=== PATIENT | male | born 1945 | race Asian ===

== ENCOUNTER 2017-02-23 20:12 | Emergency (ER) | payer OTHER ==
--- NOTE | 2017-02-23 21:12 | DIAGNOSTIC IMAGING REPORT ---
PROCEDURE: CT CERVICAL SPINE W/O CONTRAST INDICATION: Fall from roof. TECHNIQUE: Noncontrast axial images with sagittal and coronal reformations. COMPARISON: None. FINDINGS: There mild to moderate degenerative changes with mild multilevel disc space narrowing and facet disease. There are dystrophic calcifications of the ligamentum nuchae. Osseous structures and disc spaces are otherwise normal. No evidence of an acute process or fracture. Alignment is normal. IMPRESSION: 1. Mild to moderate degenerative changes. 2. Otherwise negative CT cervical spine. No evidence of an acute process or fracture. 3. Findings discussed with Dr. Broderick Jarrell. All CT scans at this facility use dose modulation, iterative reconstruction, and/or weight-based dosing when appropriate to reduce radiation dose to as low as reasonably achievable.
--- NOTE | 2017-02-23 21:13 | DIAGNOSTIC IMAGING REPORT ---
PROCEDURE: CT HEAD WITHOUT CONTRAST INDICATION: Trauma/injury. Fall from roof. TECHNIQUE: Noncontrast axial images with sagittal and coronal reformations. COMPARISON: None. FINDINGS: Mild to moderate extracranial soft tissue swelling and injury of the scalp vertex. No evidence of skull fracture. Intracranially, brain and ventricles are normal. No evidence of an acute process or hemorrhage. Enlarged cisterna magna represents a normal variant. Sinuses and mastoids are normal. IMPRESSION: 1. Mild to moderate extracranial soft tissue help injury (over the vertex). 2. Otherwise negative head CT. No evidence of intracranial injury. 3. Findings discussed with Dr. Broderick Jarrell at [address] scans at this facility use dose modulation, iterative reconstruction, and/or weight-based dosing when appropriate to reduce radiation dose to as low as reasonably achievable.
--- NOTE | 2017-02-23 21:48 | DIAGNOSTIC IMAGING REPORT ---
PROCEDURE: CT THORAX ABD PELVIS W/CONT INDICATION: TRAUMA/INJURY TECHNIQUE: of Isovue 300 injected intravenously and axial images were obtained of the entire thorax, abdomen, and pelvis with sagittal and coronal reformations. COMPARISON: None. FINDINGS: THORAX: Lungs are clear. Heart and mediastinum are normal. Mild to moderate degenerative changes of the thoracic spine. No evidence of fracture. ABDOMEN: Gallbladder, liver, spleen, pancreas, kidneys, and aorta are normal. Bowel pattern is within normal limits. Mild to moderate degenerative changes of the lumbar spine. PELVIS: Pelvic structures are normal. IMPRESSION: 1. Negative CT thorax. 2. Negative CT abdomen. 3. Negative CT pelvis. 4. No evidence of acute injury. 5. Findings discussed with Dr. Broderick Jarrell. All CT scans at this facility use dose modulation, iterative reconstruction, and/or weight-based dosing when appropriate to reduce radiation dose to as low as reasonably achievable.
--- NOTE | 2017-02-23 22:11 | ED NURSING NOTES ---
Clinical Report - Nurses [facility] [address] [place] [address] 02/23/2017 20:12 Patient: WILLIAM ZAMORA TRIAGE Triage time 20:Feb 23 2017. Acuity: LEVEL 2. Chief Complaint: INJURY TO HEAD and (pt last remembers being on the roof that is jr 12 feet tall, no recall or witness between time on roof and call to ems, pt presents with 2 lacs to top of head,). Alert. No acute distress. DANIELLE COMA SCORE: Danielle Coma Scale: 14- eyes open spontaneously (4); best verbal response- disoriented (4); best motor response- obeys commands (6). --20:25 Tracy Agarwal R.N. 20:15 02/23/17. BP: 151/87. HR: 82. RR: 17. O2 saturation: 97%. Temp: 98.3 F. Pain level now: 09/20. --20:25 Tracy Agarwal R.N. Weight: 83.9 kg stated. Height/Length: 66 inches Per Patient. BMI: 29.9. --20:19 Tracy Agarwal R.N. Medications MetFORMIN HCl Oral. --20:24 Tracy Agarwal R.N. Shark Cartilage Oral. --20:24 Tracy Agarwal R.N. Allergies None. --20:24 Tracy Agarwal R.N. History Arrived by EMS. Historian: patient. ( glucose 185). This occurred just prior to arrival and today (20 minutes ago). He sustained a laceration. Mechanism of injury: fell over 10 feet off a roof (unwitnessed, pt does not remember the fall). The patient had loss of consciousness. (unknown). Treatment CRANE HELPER: Applied bandage. (ccollar). See EMS report. PAST MEDICAL HX: Diabetes mellitus. Hypertension. Tetanus status: unknown. Immunizations: status is unknown. SOCIAL HX: Never smoker. No alcohol use or drug use. No infectious disease exposure. ABUSE ASSESSMENT: No report of abuse. SELF HARM ASSESSMENT: A self harm assessment was performed. The patient answered "no" to the question "Do you have thoughts of harming or killing yourself?". NUTRITIONAL RISK ASSESSMENT: The nutritional risk assessment revealed no deficiencies. FUNCTIONAL ASSESSMENT: Functional assessment: no impairments noted. LEARNING NEEDS ASSESSMENT: The learning needs assessment revealed no barriers. SKIN INTEGRITY ASSESSMENT: Skin integrity risk assessment completed. No skin integrity risk identified. --20:25 Tracy Agarwal R.N. PROBLEMS: Benign Prostatic Hypertrophy. Hypertension. Elevated Cholesterol. --20:25 Tracy Agarwal R.N. ADDITIONAL SURGERIES: no known surgeries. Interventions ID band on patient. To room. --20:25 Tracy Agarwal R.N. PHYSICAL ASSESSMENT To room via stretcher. GENERAL / NEURO / PSYCH: Alert. Oriented X 4. HEENT: Head: tenderness and laceration present. Vertex: laceration with controlled bleeding. Right and left ear within normal limits. Mouth within normal limits upon inspection. Voice within normal limits. No nasal injury noted. Mucous membranes are pink. RESPIRATORY: Respirations not labored. CVS: Capillary refill less than 2 seconds. BACK: Vertebral point tenderness over the lumbar spine. SKIN: Skin is warm and dry. --20:27 Tracy Agarwal R.N. NURSING PROGRESS NOTES C-collar applied. Patient gowned. Reassurance given. Patient identifiers checked. Call light placed in reach. Side rails up x 2. Bed placed in lowest position. Brakes of bed on. --20:27 Tracy Agarwal R.N. 20:23 02/23/2017 Site #1 started via IV in the right antecubital space with an 18g angiocath; one attempt. Blood drawn: rainbow set. Labeled in the presence of the patient and sent to the lab. Saline lock flushed with 10 mL saline. --20:28 Tracy Agarwal R.N. 20:28 02/23/2017 Site #2 started via IV in the left hand with an 20g angiocath; one attempt. Saline lock flushed with 10 mL saline. --20:28 Tracy Agarwal R.N. Cardiac rhythm: (SR). --20:28 Tracy Agarwal R.N. 20:41 02/23/2017 Started bag #1 1000 mL IV Fluids IV NS (Saline); at 1000 mL/hr via site #1. Allergies verified and confirmed 5 rights. IV patency established. IV site checked: no pain, redness, or swelling. IV flushed thoroughly pre- and post-medication administration. --20:41 Tracy Agarwal R.N. Patient transported to radiology and CT by stretcher. --20:46 Tracy Agarwal R.N. 21:19 02/23/2017 Morphine IVP 4 mg given. via site #1. Allergies verified, confirmed 5 rights and sedative warning given to the patient and patient's family. IV patency established. IV site checked: no pain, redness, or swelling. IV flushed thoroughly pre- and post-medication administration. IVP given by RN. --21:28 Tracy Agarwal R.N. 22:01 02/23/17. Wound cleansed with water and Hibiclens (By Lori GIORDANO). --22:47 Tracy Agarwal R.N. 22:04 02/23/17. WOUND REPAIR: Wound repair performed by ED physician. Assisted by one nurse. The wound is located on the scalp. The wound is linear. Preparation: with 1% lidocaine. Wound cleansed per physician with sterile saline and irrigated per physician using a syringe. Procedure: wound repaired with pb. Post-procedure: he was stable, no complications, bleeding controlled, neuro-vascular status intact distal to wound, dressing applied and wound care instructions given. --22:35 Tracy Agarwal R.N. 22:05 02/23/2017 TDAP IM 0.5 mL given. (Lot#: [id number], expiration date: 01/14/2019, [employer]: [employer]). Given in the right deltoid. Allergies verified and confirmed 5 rights. Vaccine information statement provided to the patient. --22:15 Tracy Agarwal R.N. <<ROYCEKEN ENTRY-- 22:31 02/23/17. WOUND REPAIR: Wound repair performed by TONY. The wound is located on the left foot and fourth left toe. The wound is linear. Preparation. Wound cleansed per nurse. Procedure: wound repaired with Dermabond and steri-strips. Post-procedure: he was stable, no complications, bleeding controlled, neuro-vascular status intact distal to wound and dressing applied. --22:48 Tracy Agarwal R.N. --END STRIKE>> Charted On Wrong Patient --22:50 Tracy Agarwal R.N. 22:49. ( pt dc home with family via w[place] to car. pt able to transfer self independently, lac to head pb intact, 11 total, pts family instructed on if head wound were to begin to bleed to hold pressure, at this time c/d/i, s/sx of infection gone over with family, pt enc to pe[facility] picker rx this evening, pt a/o x 4 on dispo, santosh, does c/o cont pain to right flank "but it's better since the medicine"). --23:31 Tracy Agarwal R.N. 21:54 02/24/2017 IV Fluids IV NS Discontinued: completed upon discharge. Total amount infused: 1000 mL. IV patency established. IV site checked: no pain, redness, or swelling. IV flushed thoroughly. --00:26 Tracy Agarwal R.N. DISPOSITION / DISCHARGE 22:48 02/23/17. BP: 109/76. HR: 71. RR: 15. O2 saturation: 100%. Temp: deferred. Pain level now: 12/18. --22:49 Tracy Agarwal R.N. No learning barriers present. Discharge instructions provided and reviewed with the patient. Reviewed medication(s) side effects, precautions, dosing and course information. Prescription(s) given to the patient. Patient verbalized understanding. Written instructions provided in Slovak. The patient was discharged by the physician temporary administrative assistant. He was discharged home and accompanied by spouse. He left the Emergency Department ambulatory and via private vehicle. Spouse driving. --22:49 Tracy Agarwal R.N. 22:43 02/23/2017 Site #1 removed upon discharge. Bandaid applied. --22:53 Tracy Agarwal R.N. 22:43 02/23/2017 Site #2 removed upon discharge. Bandaid applied. --22:53 Tracy Agarwal R.N. Locked/Released at 02/24/2017 0:26 by Tracy Agarwal R.N.
--- NOTE | 2017-02-23 22:11 | ED CLINICAL REPORT ---
Clinical Report - Physicians/Mid Levels [facility] [address] [place] [address] 02/23/2017 20:12 Patient: WILLIAM ZAMORA Time Seen: 20:36; initial patient contact. Arrived- By ambulance. Historian- patient and EMS personnel. HISTORY OF PRESENT ILLNESS Location of injuries- head, chest and upper back. Chief Complaint: FALL. The injury occurred just prior to arrival. Fell over 10 feet and landed on the ground. Occurred at home. The patient complains of moderate pain. The patient sustained a blow to the head, complains of neck pain and was dazed. No loss of consciousness. REVIEW OF SYSTEMS The patient has had chest pain. No difficulty breathing, nausea, abdominal pain, laceration or vomiting. All systems otherwise negative, except as recorded above. PAST HISTORY Benign Prostatic Hypertrophy. Hypertension. Elevated Cholesterol. DM. Surgeries: No history of previous surgery. Additional Surgeries: no known surgeries. Medications: Shark Cartilage Oral. MetFORMIN HCl Oral. Allergies: None. SOCIAL HISTORY Never smoker. No alcohol use or drug use. ADDITIONAL NOTES The nursing notes have been reviewed. PHYSICAL EXAM Vital Signs: 02/23/2017 20:15 BP: 151/87. HR: 82. RR: 17. O2 saturation: 97%. Temp: 98.3 F. Pain level now: 2/10. Have been reviewed. Hypertensive. Heart rate normal. Respiratory rate normal. Temperature normal. Oxygen saturation normal. Appearance: C-collar in place. Alert. Oriented X3. No acute distress. Head: No Aguilar's sign or raccoon eyes. Vertex: mild tenderness and swelling and deep laceration greater than 5.0 cm of the posterior aspect of the vertex. ENT: No dental injury. Pharynx normal. Neck: No pain with movement of head/neck. No vertebral tenderness. Mild soft tissue tenderness in the right upper, mid and lower neck area and left upper, mid and lower neck area. CVS: Heart sounds normal. Rate normal. Rhythm normal. Respiratory: No respiratory distress. Chest wall injury: moderate tenderness located in the right, posterior and lateral chest. Splinting present. No swelling. No laceration. No abrasion. No ecchymosis. No deformity. No paradoxical movement. Breath sounds normal. Abdomen: No visible injury. Soft and nontender. Bowel sounds normal. No organomegaly. No mass. Back: No tenderness. ROM normal. Skin: Single large-sized, deep, linear greater than 5.0 cm laceration to scalp. Extremities: Normal inspection. Pelvis stable. Extremities atraumatic. Neuro: Oriented X 3. No motor deficit. No sensory deficit. LABS, X-RAYS, AND EKG CT C-Spine: (1. Mild to moderate degenerative changes. 2. Otherwise negative CT cervical spine. No evidence of an acute process or fracture.). C-Spine CT performed without contrast. Prior studies were not available for comparison. The study was interpreted by the radiologist and discussed with the radiologist. CT Head: (1. Mild to moderate extracranial soft tissue help injury (over the vertex). 2. Otherwise negative head CT. No evidence of intracranial injury.). Head CT performed without contrast. The study was independently viewed by me, interpreted by the radiologist and discussed with the radiologist. Prior studies were not available for comparison. CT Abdomen: 1. Negative CT thorax. 2. Negative CT abdomen. 3. Negative CT pelvis. 4. No evidence of acute injury. Abdominal CT performed with IV contrast. Prior studies were not available for comparison. The study was interpreted by the radiologist and discussed with the radiologist. Laboratory Tests: CBC w Diff: (PABLO: 02/23/2017 20:20) ( MsgRcvd 02/23/2017 20:48) Final results Test Result Flag Units (Reference) WHITE BLOOD COUNT 10.5 K/uL (4.5-11.5) RED BLOOD COUNT 4.28 L M/uL (4.50-5.90) HEMOGLOBIN 13.3 L gm/dL (13.5-17.5) HEMATOCRIT 38.3 L % (41.0-53.0) MEAN CELL VOLUME 90 fL (80-100) MEAN CORPUSCULAR HGB 31 pg (26-34) MEAN CORPUSCULAR HGB CONC 35 g/dL (31-37) RED CELL DISTRIBUTION WIDTH 12.2 % (11.6-14.8) PLATELET COUNT 249 K/uL (150-400) NEUTROPHIL % 53.8 % (50-75) LYMPH % 32.9 % (25-40) MONO % 9.7 % (3-14) EOSINOPHIL % 3.1 % (0-4) BASOPHIL % 0.5 % (0-2) CMP: (PABLO: 02/23/2017 20:20) ( MsgRcvd 02/23/2017 21:04) Final results Test Result Flag Units (Reference) GLUCOSE 188 H mg/dL (70-110) BUN 13 mg/dL (7-18) CREATININE 1.0 mg/dL (0.6-1.3) Estimated GFR >60 mL/min Estimated GFR- >60 mL/min Note: Persistent reduction over 3 months in eGFR<60 mL/min/1.73 m2 defines CKD. Patients with eGFR values>=60 mL/min/1.73 m2 may also have CKD if evidence ofpersistent proteinuria. Additional information may be foundat [email or web address]. SODIUM 134 L mmol/L (136-145) POTASSIUM 4.2 mmol/L (3.5-5.1) CHLORIDE 100 mmol/L (98-107) CARBON DIOXIDE 27 mmol/L (21-32) CALCIUM 8.2 L mg/dL (8.5-10.1) TOTAL PROTEIN 7.5 g/dL (6.4-8.2) ALBUMIN 3.8 g/dL (3.3-5.0) BILIRUBIN, TOTAL 0.4 mg/dL (0.0-1.0) ALKALINE PHOSPHATASE 48 U/L (46-116) AST (SGOT) 26 U/L (15-37) ALT (SGPT) 32 U/L (12-78) . PROGRESS AND PROCEDURES Laceration Repair: Time: 22:09. Location: scalp. Per protocol, time-out completed immediately before the procedure. Length: greater than 8.0cm. Complexity: simple (stapled). Wound depth/shape- subcutaneous. Distal neuro/vascular/tendon status normal. Anesthesia provided using 1% lidocaine with epi. Prepped with chlorhexidine. Wound explored, irrigated and examined to the base in bloodless field extensively with normal saline. Closure of skin: interrupted (11 pb). Post-procedure: he is stable and there are no complications. Bleeding is controlled and neuro-vascular status is intact distal to the wound. Tetanus immunization given. Estimated blood loss: 2 mL. Disposition: Discharged home in good and improved condition. Condition: good. CLINICAL IMPRESSION Single deep laceration to the scalp.Treatment of laceration not delayed. No infection or foreign body present. Single contusion to the right posterior chest. Fall from building and on same level by slipping. INSTRUCTIONS Protect wound and keep wound area clean. You may wash wounds briefly, then dry. Apply bacitracin twice daily. Sutures/pb should be removed in five days. Warnings: TETANUS: You were given a tetanus shot during your visit. Make a note for future reference. Your Current Medications: CONTINUE TAKING THE FOLLOWING MEDICATIONS: MetFORMIN HCl Oral. Shark Cartilage Oral. Prescription Medications: Hydrocodone/APAP 5mg / 325mg: take 1 orally every 6 hours as needed for pain. Dispense fifteen (15). No refill. Follow-up: Follow up with your doctor in five days for staple removal. Call for an appointment. Screening today revealed the patient's blood pressure to be in the hypertensive range. The patient should follow up with a primary care provider for blood pressure management. (Electronically signed by Broderick Jarrell Dr. 02/23/2017 23:08)
--- NOTE | 2017-02-23 22:11 | ED ORDER SUMMARY ---
..... Patient: WILLIAM ZAMORA OrderSheet [facility] VisitID: [id number] [place] [address] 71y, M Registration Date/Time: 02/23/2017 ORDER SHEET Weight: 83.9 kg (stated) Allergies: None GENERAL ORDERS: CT Head wo Cont Urgent (20:37 02/23/2017 Gerardo Watkins) (Ack 20:44 AMcQuoid ER Tech1) (20:52 RFay) CT Cervical Spine wo Cont Urgent (20:37 02/23/2017 Gerardo Watkins) (Ack 20:44 AMcQuoid ER Tech1) (20:52 RFay) CBC w Diff Urgent (20:39 02/23/2017 Gerardo Watkins) (20:44 AMcQuoid ER Tech1) CMP Urgent (20:39 02/23/2017 Gerardo Watkins) (20:44 AMcQuoid ER Tech1) UA-Culture if indicated Urgent (20:39 02/23/2017 Gerardo Watkins) (Ack 20:45 AMcQuoid ER Tech1) (0:25 KPage-Kuchan R.N.) CT Thorax/Abd/Pelvis w Cont (Yes) (23/08) Urgent (21:19 02/23/2017 Gerardo Watkins) (Ack 21:22 AMcQuoid ER Tech1) (21:37 RFay) MEDICATION ORDERS: Tdap IM 0.5 mL (NOW, per protocol) (21:48 02/23/2017 Gerardo Watkins) (Ack 21:56 KPage-Kuchan R.N.) (22:15 KPage-Kuchan R.N.) Lidocaine-Epinephrine Injection 2 % (soln) (NOW) (21:50 02/23/2017 Gerardo Watkins) (Cancelled: Physician Order21:51 Gerardo Watkins) IV FLUIDS: IV NS : initial bolus none -, then 1000 mL/hr for X1 (NOW) (20:36 02/23/2017 Gerardo Watkins) (20:41 KPage-Kuadaln R.N.) Morphine IV 4 mg (HIGH ALERT MEDICATION, NOW) (21:14 02/23/2017 Gerardo Watkins) (21:28 Dilia Allen) ORDER SHEET NOTES: [Electronically signed by Broderick Jarrell Dr. (23:08 02/23/2017)] [Electronically signed by Tracy Agarwal R.N. (00:26 02/24/2017)] [Electronically locked/signed by Tracy Agarwal R.N. (00:26 02/24/2017)]
--- NOTE | 2017-02-23 22:11 | ED NURSING NOTES ---
Clinical Report - Nurses [facility] [address] [place] [address] 02/23/2017 20:12 Patient: WILLIAM ZAMORA TRIAGE Triage time 20:Feb 23 2017. Acuity: LEVEL 2. Chief Complaint: INJURY TO HEAD and (pt last remembers being on the roof that is jr 12 feet tall, no recall or witness between time on roof and call to ems, pt presents with 2 lacs to top of head,). Alert. No acute distress. DANIELLE COMA SCORE: Danielle Coma Scale: 14- eyes open spontaneously (4); best verbal response- disoriented (4); best motor response- obeys commands (6). --20:25 Tracy Agarwal R.N. 20:15 02/23/17. BP: 151/87. HR: 82. RR: 17. O2 saturation: 97%. Temp: 98.3 F. Pain level now: 09/20. --20:25 Tracy Agarwal R.N. Weight: 83.9 kg stated. Height/Length: 66 inches Per Patient. BMI: 29.9. --20:19 Tracy Agarwal R.N. Medications MetFORMIN HCl Oral. --20:24 Tracy Agarwal R.N. Shark Cartilage Oral. --20:24 Tracy Agarwal R.N. Allergies None. --20:24 Tracy Agarwal R.N. History Arrived by EMS. Historian: patient. ( glucose 185). This occurred just prior to arrival and today (20 minutes ago). He sustained a laceration. Mechanism of injury: fell over 10 feet off a roof (unwitnessed, pt does not remember the fall). The patient had loss of consciousness. (unknown). Treatment ESTIMATING ENGINEER: Applied bandage. (ccollar). See EMS report. PAST MEDICAL HX: Diabetes mellitus. Hypertension. Tetanus status: unknown. Immunizations: status is unknown. SOCIAL HX: Never smoker. No alcohol use or drug use. No infectious disease exposure. ABUSE ASSESSMENT: No report of abuse. SELF HARM ASSESSMENT: A self harm assessment was performed. The patient answered "no" to the question "Do you have thoughts of harming or killing yourself?". NUTRITIONAL RISK ASSESSMENT: The nutritional risk assessment revealed no deficiencies. FUNCTIONAL ASSESSMENT: Functional assessment: no impairments noted. LEARNING NEEDS ASSESSMENT: The learning needs assessment revealed no barriers. SKIN INTEGRITY ASSESSMENT: Skin integrity risk assessment completed. No skin integrity risk identified. --20:25 Tracy Agarwal R.N. PROBLEMS: Benign Prostatic Hypertrophy. Hypertension. Elevated Cholesterol. --20:25 Tracy Agarwal R.N. ADDITIONAL SURGERIES: no known surgeries. Interventions ID band on patient. To room. --20:25 Tracy Agarwal R.N. PHYSICAL ASSESSMENT To room via stretcher. GENERAL / NEURO / PSYCH: Alert. Oriented X 4. HEENT: Head: tenderness and laceration present. Vertex: laceration with controlled bleeding. Right and left ear within normal limits. Mouth within normal limits upon inspection. Voice within normal limits. No nasal injury noted. Mucous membranes are pink. RESPIRATORY: Respirations not labored. CVS: Capillary refill less than 2 seconds. BACK: Vertebral point tenderness over the lumbar spine. SKIN: Skin is warm and dry. --20:27 Tracy Agarwal R.N. NURSING PROGRESS NOTES C-collar applied. Patient gowned. Reassurance given. Patient identifiers checked. Call light placed in reach. Side rails up x 2. Bed placed in lowest position. Brakes of bed on. --20:27 Tracy Agarwal R.N. 20:23 02/23/2017 Site #1 started via IV in the right antecubital space with an 18g angiocath; one attempt. Blood drawn: rainbow set. Labeled in the presence of the patient and sent to the lab. Saline lock flushed with 10 mL saline. --20:28 Tracy Agarwal R.N. 20:28 02/23/2017 Site #2 started via IV in the left hand with an 20g angiocath; one attempt. Saline lock flushed with 10 mL saline. --20:28 Tracy Agarwal R.N. Cardiac rhythm: (SR). --20:28 Tracy Agarwal R.N. 20:41 02/23/2017 Started bag #1 1000 mL IV Fluids IV NS (Saline); at 1000 mL/hr via site #1. Allergies verified and confirmed 5 rights. IV patency established. IV site checked: no pain, redness, or swelling. IV flushed thoroughly pre- and post-medication administration. --20:41 Tracy Agarwal R.N. Patient transported to radiology and CT by stretcher. --20:46 Tracy Agarwal R.N. 21:19 02/23/2017 Morphine IVP 4 mg given. via site #1. Allergies verified, confirmed 5 rights and sedative warning given to the patient and patient's family. IV patency established. IV site checked: no pain, redness, or swelling. IV flushed thoroughly pre- and post-medication administration. IVP given by RN. --21:28 Tracy Agarwal R.N. 22:01 02/23/17. Wound cleansed with water and Hibiclens (By Lori GIORDANO). --22:47 Tracy Agarwal R.N. 22:04 02/23/17. WOUND REPAIR: Wound repair performed by ED physician. Assisted by one nurse. The wound is located on the scalp. The wound is linear. Preparation: with 1% lidocaine. Wound cleansed per physician with sterile saline and irrigated per physician using a syringe. Procedure: wound repaired with pb. Post-procedure: he was stable, no complications, bleeding controlled, neuro-vascular status intact distal to wound, dressing applied and wound care instructions given. --22:35 Tracy Agarwal R.N. 22:05 02/23/2017 TDAP IM 0.5 mL given. (Lot#: [id number], expiration date: 01/14/2019, Yard Coordinator: sanofi pasteur). Given in the right deltoid. Allergies verified and confirmed 5 rights. Vaccine information statement provided to the patient. --22:15 Tracy Agarwal R.N. <<ROYCEKEN ENTRY-- 22:31 02/23/17. WOUND REPAIR: Wound repair performed by TONY. The wound is located on the left foot and fourth left toe. The wound is linear. Preparation. Wound cleansed per nurse. Procedure: wound repaired with Dermabond and steri-strips. Post-procedure: he was stable, no complications, bleeding controlled, neuro-vascular status intact distal to wound and dressing applied. --22:48 Tracy Agarwal R.N. --END STRIKE>> Charted On Wrong Patient --22:50 Tracy Agarwal R.N. 22:49. ( pt dc home with family via w[place] to car. pt able to transfer self independently, lac to head pb intact, 11 total, pts family instructed on if head wound were to begin to bleed to hold pressure, at this time c/d/i, s/sx of infection gone over with family, pt enc to merchandise pickup/receiving associate rx this evening, pt a/o x 4 on dispo, santosh, does c/o cont pain to right flank "but it's better since the medicine"). --23:31 Tracy Agarwal R.N. 21:54 02/24/2017 IV Fluids IV NS Discontinued: completed upon discharge. Total amount infused: 1000 mL. IV patency established. IV site checked: no pain, redness, or swelling. IV flushed thoroughly. --00:26 Tracy Agarwal R.N. DISPOSITION / DISCHARGE 22:48 02/23/17. BP: 109/76. HR: 71. RR: 15. O2 saturation: 100%. Temp: deferred. Pain level now: 12/18. --22:49 Tracy Agarwal R.N. No learning barriers present. Discharge instructions provided and reviewed with the patient. Reviewed medication(s) side effects, precautions, dosing and course information. Prescription(s) given to the patient. Patient verbalized understanding. Written instructions provided in Croatian. The patient was discharged by the physician research assistant member. He was discharged home and accompanied by spouse. He left the Emergency Department ambulatory and via private vehicle. Spouse driving. --22:49 Tracy Agarwal R.N. 22:43 02/23/2017 Site #1 removed upon discharge. Bandaid applied. --22:53 Tracy Agarwal R.N. 22:43 02/23/2017 Site #2 removed upon discharge. Bandaid applied. --22:53 Tracy Agarwal R.N. Locked/Released at 02/24/2017 0:26 by Tracy Agarwal R.N.
--- NOTE | 2017-02-23 22:11 | ED ORDER SUMMARY ---
..... Patient: WILLIAM ZAMORA [facility] VisitID: [id number] [place] [address] 71y, M Registration Date/Time: 02/23/2017 ORDER SHEET Weight: 83.9 kg (stated) Allergies: None GENERAL ORDERS: CT Head wo Cont Urgent (20:37 02/23/2017 Gerardo Watkins) (Ack 20:44 AMcQuoid ER Tech1) (20:52 RFay) CT Cervical Spine wo Cont Urgent (20:37 02/23/2017 Gerardo Watkins) (Ack 20:44 AMcQuoid ER Tech1) (20:52 RFay) CBC w Diff Urgent (20:39 02/23/2017 Gerardo Watkins) (20:44 AMcQuoid ER Tech1) CMP Urgent (20:39 02/23/2017 Gerardo Watkins) (20:44 AMcQuoid ER Tech1) UA-Culture if indicated Urgent (20:39 02/23/2017 Gerardo Watkins) (Ack 20:45 AMcQuoid ER Tech1) (0:25 KPage-Kuchan R.N.) CT Thorax/Abd/Pelvis w Cont (Yes) (23/08) Urgent (21:19 02/23/2017 Gerardo Watkins) (Ack 21:22 AMcQuoid ER Tech1) (21:37 RFay) MEDICATION ORDERS: Tdap IM 0.5 mL (NOW, per protocol) (21:48 02/23/2017 Gerardo Watkins) (Ack 21:56 KPage-Kuchan R.N.) (22:15 KPage-Kuchan R.N.) Lidocaine-Epinephrine Injection 2 % (soln) (NOW) (21:50 02/23/2017 Gerardo Watkins) (Cancelled: Physician Order21:51 Gerardo Watkins) IV FLUIDS: IV NS : initial bolus none -, then 1000 mL/hr for X1 (NOW) (20:36 02/23/2017 Gerardo Watkins) (20:41 KPage-Kuadaln R.N.) Morphine IV 4 mg (HIGH ALERT MEDICATION, NOW) (21:14 02/23/2017 Gerardo Watkins) (21:28 Dilia Allen) ORDER SHEET NOTES: [Electronically signed by Broderick Jarrell Dr. (23:08 02/23/2017)] [Electronically signed by Tracy Agarwal R.N. (00:26 02/24/2017)] [Electronically locked/signed by Tracy Agarwal R.N. (00:26 02/24/2017)]
--- NOTE | 2017-02-24 00:27 | ED MAR SUMMARY ---
..... Medication Administration Record [facility] [address] [place] [address] Patient: WILLIAM ZAMORA Visit ID: [id number] 71y, M Weight: 83.9 kg Height/Length: 66 in BMI: 29.9 ALLERGIES: None Start 20:41 02/23/2017 Tracy Agarwal R.N., Stop 21:54 02/24/2017 Tracy Agarwal R.N. Medication Administered: IV NS (SALINE), Dose: IV Fluids, Rate: 1000 mL/hr, Dispensed: 1000 mL bag, Site: #1 right AC. Medication Ordered: IV NS : initial bolus none -, then 1000 mL/hr for X1 (NOW). Given 21:19 02/23/2017 Tracy Agarwal R.N. Medication Administered: MORPHINE [IVP], Dose: 4 mg IVP, Site: #1 right AC. Medication Ordered: Morphine IV 4 mg (HIGH ALERT MEDICATION, NOW). Given 22:05 02/23/2017 Tracy Agarwal R.N. Medication Administered: TDAP [IM], Dose: 0.5 mL IM. Medication Ordered: Tdap IM 0.5 mL (NOW, per protocol).
--- NOTE | 2017-02-24 00:27 | ED MED RECONCILIATION SUMMARY ---
Patient: WILLIAM ZAMORA Medication Reconciliation Report [facility] VisitID: [id number] [address] [place] [address] 71y, M Registration Date/Time: 02/23/2017 Weight: 83.9 kg Height/Length: 66 in. BMI: 29.9 ALLERGIES: None The patient's Home Medications are listed below: CONTINUE TAKING THE FOLLOWING MEDICATIONS: MetFORMIN HCl Oral Shark Cartilage Oral The source(s) of the original Home Medication information: Not obtained. The following Medications were given to the patient in the Emergency Department: IV NS IV Fluids bolus 0, then 1000 mL/hr, administered: 02/23/2017 8:41:00 PM Morphine [IVP] IVP 4 mg, administered: 02/23/2017 9:19:00 PM TDAP [IM] IM 0.5 mL, administered: 02/23/2017 10:05:00 PM The following Medications were prescribed to the patient: Hydrocodone/APAP 5mg / 325mg: take 1 orally every 6 hours as needed for pain. Dispense fifteen (15). No refill. -- Broderick Jarrell Dr.
--- NOTE | 2017-02-24 00:27 | ED MAR SUMMARY ---
..... Medication Administration Record [facility] [address] [place] [address] Patient: WILLIAM ZAMORA Visit ID: [id number] 71y, M Weight: 83.9 kg Height/Length: 66 in BMI: 29.9 ALLERGIES: None Start 20:41 02/23/2017 Tracy Agarwal R.N., Stop 21:54 02/24/2017 Tracy Agarwal R.N. Medication Administered: IV NS (SALINE), Dose: IV Fluids, Rate: 1000 mL/hr, Dispensed: 1000 mL bag, Site: #1 right AC. Medication Ordered: IV NS : initial bolus none -, then 1000 mL/hr for X1 (NOW). Given 21:19 02/23/2017 Tracy Agarwal R.N. Medication Administered: MORPHINE [IVP], Dose: 4 mg IVP, Site: #1 right AC. Medication Ordered: Morphine IV 4 mg (HIGH ALERT MEDICATION, NOW). Given 22:05 02/23/2017 Tracy Agarwal R.N. Medication Administered: TDAP [IM], Dose: 0.5 mL IM. Medication Ordered: Tdap IM 0.5 mL (NOW, per protocol).
--- NOTE | 2017-02-24 00:27 | ED MED RECONCILIATION SUMMARY ---
Patient: WILLIAM ZAMORA Medication Reconciliation Report [facility] VisitID: [id number] [address] [place] [address] 71y, M Registration Date/Time: 02/23/2017 Weight: 83.9 kg Height/Length: 66 in. BMI: 29.9 ALLERGIES: None The patient's Home Medications are listed below: CONTINUE TAKING THE FOLLOWING MEDICATIONS: MetFORMIN HCl Oral Shark Cartilage Oral The source(s) of the original Home Medication information: Not obtained. The following Medications were given to the patient in the Emergency Department: IV NS IV Fluids bolus 0, then 1000 mL/hr, administered: 02/23/2017 8:41:00 PM Morphine [IVP] IVP 4 mg, administered: 02/23/2017 9:19:00 PM TDAP [IM] IM 0.5 mL, administered: 02/23/2017 10:05:00 PM The following Medications were prescribed to the patient: Hydrocodone/APAP 5mg / 325mg: take 1 orally every 6 hours as needed for pain. Dispense fifteen (15). No refill. -- Broderick Jarrell Dr.
--- NOTE | 2017-02-24 00:27 | ED DISCHARGE INSTRUCTIONS ---
Patient: WILLIAM ZAMORA General Instructions [facility] VisitID: [id number] [place] [address] 71y, M Registration Date/Time: 02/23/2017 Single deep laceration to the scalp.Treatment of laceration not delayed. No infection or foreign body present. Single contusion to the right posterior chest. Fall from building and on same level by slipping. INSTRUCTIONS Protect wound and keep wound area clean. You may wash wounds briefly, then dry. Apply bacitracin twice daily. Sutures/pb should be removed in five days. Warnings: TETANUS: You were given a tetanus shot during your visit. Make a note for future reference. Your Current Medications: CONTINUE TAKING THE FOLLOWING MEDICATIONS: MetFORMIN HCl Oral. Shark Cartilage Oral. Prescription Medications: Hydrocodone/APAP 5mg / 325mg: take 1 orally every 6 hours as needed for pain. Dispense fifteen (15). No refill. Follow-up: Follow up with your doctor in five days for staple removal. Call for an appointment. Screening today revealed the patient's blood pressure to be in the hypertensive range. The patient should follow up with a primary care provider for blood pressure management. ADDITIONAL INFORMATION Mechanical Fall You have had a fall today. It appears that the cause is mechanical. That means that you slipped, tripped or lost your balance. If your fall had been due to fainting or a seizure, further tests would be required. Home Care: Rest today and resume your normal activities when you are feeling back to normal. If you were injured during the fall, follow the advice from your doctor regarding care of your injury. You may use acetaminophen (Tylenol) or ibuprofen (Motrin, Advil) to control pain, unless another pain medicine was prescribed. [NOTE: If you have chronic liver or kidney disease or ever had a stomach ulcer or GI bleeding, talk with your doctor before using these medicines.] Fall Prevention: Was there anything that caused your fall that can be fixed, removed, or replaced? Make your home safe by keeping walkways clear of objects you may trip over. Use non-slip pads under rugs. Do not walk in poorly lit areas. Do not stand on chairs or wobbly ladders. Use caution when reaching overhead or looking upward. This position can cause a loss of balance. Be sure your shoes fit properly, have non-slip bottoms and are in good condition. Be cautious when going up and down curbs, and walking on uneven sidewalks. If your balance is poor, consider using a cane or walker. Stay as active as you can. Balance, flexibility, strength, and endurance all come from exercise. They all play a role in preventing falls. Follow Up with your doctor or as advised by our staff. Get Prompt Medical Attention if any of the following occur: Repeated mechanical falls, or unexplained falls Dizziness, fainting or seizure Severe headache Chest pain or shortness of breath Palpitations (very rapid or very slow or irregular heartbeat) Blood in vomit, stools (black or red color) Weakness of an arm or leg or one side of the face Difficulty with speech or vision Laceration (All Closures) Alaceration is a cut through the skin. This will usually require stitches (sutures) or pb if it is deep. Minor cuts may be treated with a surgical tape closure orskin glue. Home care The following guidelines will help you care for your laceration at home: Extremity, face, or trunk wounds Keep the wound clean and dry. If a bandage was applied and it becomes wet or dirty, replace it. Otherwise, leave it in place for the first 24 hours. If stitches or pb were used, clean the wound daily. After removing the bandage, wash the area with soap and water. Use a wet cotton swab to loosen and remove any blood or crust that forms. The doctor may prescribe an antibiotic cream or ointment to prevent infection. Do not stop taking this medication until you have finished the prescribed course or the doctor tells you to stop. The doctor may also prescribe medications for pain. Follow the doctors instructions for taking these medications. You may remove the bandage to shower as usual after the first 24 hours, but do not soak the area in water (no swimming) until the stitches or pb are removed. If surgical tape was used, keep the area clean and dry. If it becomes wet, blot it dry with a towel. If skin glue was used, do not scratch, rub, or pick at the adhesive film. Do not place tape directly over the film. Do not apply liquid, ointment, or creams to the wound while the film is in place. Do not clean the wound with peroxide and do not apply ointments. Avoid activities that cause heavy sweating until the film has fallen off. Protect the wound from prolonged exposure to sunlight or tanning lamps. You may shower as usual but do not soak the wound in water (no baths or swimming). The film will fall off by itself in 510 days. Scalp wounds During the first two days, you may carefully rinse your hair in the shower to remove blood, glass or dirt particles. After two days, you may shower and shampoo your hair normally. Do not soak your scalp in the tub or go swimming until the stitches or pb have been removed. Talk with your doctor before applying any antibiotic ointment to the wound. Mouth wounds Eat soft foods to reduce pain. If the cut is inside of your mouth, clean by rinsing after each meal and at bedtime with a mixture of equal parts water and hydrogen peroxide (do not swallow!). Or, you can use a cotton swab to directly apply hydrogen peroxide onto the cut. Mouth wounds can be painful when eating. You may use an [id number] local numbing solution for pain relief. If this is not available, you may use any numbing solution for teething babies. You may apply this directly to the sores with a cotton-tip swab or with your finger. Follow-up care Follow up with your health care provider. Most skin wounds heal within ten days. Mouth and facial wounds heal within five days. However, even with proper treatment, a wound infection may sometimes occur. Therefore, you should check the wound daily for signs of infection listed below. Stitches should be removed from the face within five days; stitches and pb should be removed from other parts of the body within 714 days. If dissolving stitches were used in the mouth, these will fall out or dissolve without the need for removal. If tape closures were used, remove them yourself if they have not fallen off after 7 days. Ifskin glue was used, the film will fall off by itself in 510 days. When to seek medical care Get prompt medical attention if any of these occur: Bleeding not controlled by direct pressure Signs of infection, including increasing pain in the wound, increasing wound redness or swelling, or pus coming from the wound Fever of 100.4F (38C) or higher, or as directed by your health care provider Stitches or pb come apart or fall out or surgical tape falls off before 7 days Wound edges re-open Contusion,Soft Tissue You have a CONTUSION, which is a bruise with swelling and some bleeding under the skin. There are no broken bones. This injury takes a few days to a few weeks to heal. Home Care: 1) Keep the injured part elevated to reduce pain and swelling. This is especially important during the first 48 hours. 2) Make an ice pack (ice cubes in a plastic bag, wrapped in a towel) and apply for 20 minutes every 1-2 hours the first day. Continue this 3-4 times a day until the pain and swelling goes away. 3) You may use acetaminophen (Tylenol) or ibuprofen (Motrin, Advil) to control pain, unless another pain medicine was prescribed. [ NOTE : If you have chronic liver or kidney disease or ever had a stomach ulcer or GI bleeding, talk with your doctor before using these medicines.] Follow Up with your doctor or this facility if you are not improving within the next THREE days. [NOTE: If X-rays were taken, they will be reviewed by a radiologist. You will be notified of any new findings that may affect your care.] Get Prompt Medical Attention if any of the following occur: -- Pain or swelling increases -- Injured arm or leg becomes cold, blue, numb or tingly -- Redness, warmth or drainage from the skin Bandage Change If the bandage becomes wet or dirty, replace it. Otherwise, leave it in place for the first 24 hours. Then once a day: After removing the bandage, wash the area with soap and water. Use a wet cotton swab to loosen and remove any blood or crust that forms on the wound. After cleaning, apply a thin layer of antibiotic ointment or cream. Reapply the bandage. You may shower as usual after the first 24 hours. If the bandage is on an arm or leg, cover it with a plastic bag rubber banded at both ends before showering. No tub baths or swimming until the bandage is removed and the wound healed (at least 7 days). Diphtheria Toxoid Adsorbed, Pertussis Vaccine, Acellular (Adsorbed), Tetanus Toxoid, Adsorbed Suspension for injection What is this medicine? DIPHTHERIA and TETANUS TOXOIDS; PERTUSSIS VACCINE (dif THEER ee uh and TET n us TOK soids; per TUS iss vak SEEN) is used to prevent diphtheria, tetanus, and pertussis infections. How should I use this medicine? This vaccine is for injection into a muscle. It is given by a health care services manager. A copy of Vaccine Information Statements will be given before each vaccination. Read this sheet carefully each time. The sheet may change frequently. Talk to your nuclear reactor technician regarding the use of this vaccine in children. While the DTP vaccine may be given to children ages 6 weeks to 7 years and the Tdap vaccine may be given to children at least 10 years old, precautions do apply. What side effects may I notice from receiving this medicine? Side effects that you should report to your doctor or health care services manager as soon as possible: allergic reactions like skin rash, itching or hives, swelling of the face, lips, or tongue breathing problems fever of 103 degrees F or more flu-like symptoms inconsolable crying infection pain, tingling, numbness in the hands or feet seizures swelling of arm or leg that was injected unusually weak or tired Side effects that usually do not require immediate medical attention (report these side effects to your doctor or health care services manager if they continue or are bothersome): fussy, irritable loss of appetite fever of 102 degrees F or less pain, tenderness, redness, swelling, or a 'knot' at site where injected vomiting What may interact with this medicine? immune globulin medicines that suppress your immune function like adalimumab, anakinra, infliximab medicines to treat cancer medicines that treat or prevent blood clots like warfarin, enoxaparin, and dalteparin steroid medicines like prednisone or cortisone What if I miss a dose? It is important not to miss your dose. Call your doctor or health care services manager if you are unable to keep an appointment. Where should I keep my medicine? This drug is given in a hospital or clinic and will not be stored at home. What should I tell my health care provider before I take this medicine? They need to know if you have any of these conditions: blood disorders like hemophilia fever or infection immune system problems neurologic disease seizures an unusual or allergic reaction to vaccines, thimerosal, latex, other medicines, foods, dyes, or preservatives or trying to get breast-feeding What should I watch for while using this medicine? See your health care provider for all shots of this vaccine as directed. To have protection from infection, you must have 3 shots of this vaccine plus boosters as needed. Tell your doctor right away if you have any serious or unusual side effects after getting this vaccine. Hydrocodone Bitartrate, Acetaminophen Oral tablet What is this medicine? ACETAMINOPHEN; HYDROCODONE (a set a MARY valery fen; fady droe KOE done) is a pain reliever. It is used to treat mild to moderate pain. How should I use this medicine? Take this medicine by mouth. Swallow it with a full glass of water. Follow the directions on the prescription label. If the medicine upsets your stomach, take the medicine with food or milk. Do not take more than you are told to take. Talk to your nuclear reactor technician regarding the use of this medicine in children. This medicine is not approved for use in children. What side effects may I notice from receiving this medicine? Side effects that you should report to your doctor or health care services manager as soon as possible: allergic reactions like skin rash, itching or hives, swelling of the face, lips, or tongue breathing problems confusion feeling faint or lightheaded, falls stomach pain yellowing of the eyes or skin Side effects that usually do not require medical attention (report to your doctor or health care services manager if they continue or are bothersome): nausea, vomiting stomach upset What may interact with this medicine? alcohol antihistamines isoniazid medicines for depression, anxiety, or psychotic disturbances medicines for sleep muscle relaxants naltrexone narcotic medicines (opiates) for pain phenobarbital ritonavir tramadol What if I miss a dose? If you miss a dose, take it as soon as you can. If it is almost time for your next dose, take only that dose. Do not take double or extra doses. Where should I keep my medicine? Keep out of the reach of children. This medicine can be abused. Keep your medicine in a safe place to protect it from theft. Do not share this medicine with anyone. Selling or giving away this medicine is dangerous and against the law. Store at room temperature between 15 and 30 degrees C (59 and 86 degrees F). Protect from light. Keep container tightly closed. Throw away any unused medicine after the expiration date. Discard unused medicine and used packaging carefully. Pets and children can be harmed if they find used or lost packages. What should I tell my health care provider before I take this medicine? They need to know if you have any of these conditions: brain tumor Crohn's disease, inflammatory bowel disease, or ulcerative colitis drink more than 3 alcohol-containing drinks per day drug abuse or addiction head injury heart or circulation problems kidney disease or problems going to the bathroom liver disease lung disease, asthma, or breathing problems an unusual or allergic reaction to acetaminophen, hydrocodone, other opioid analgesics, other medicines, foods, dyes, or preservatives or trying to get breast-feeding What should I watch for while using this medicine? Tell your doctor or health care services manager if your pain does not go away, if it gets worse, or if you have new or a different type of pain. You may develop tolerance to the medicine. Tolerance means that you will need a higher dose of the medicine for pain relief. Tolerance is normal and is expected if you take the medicine for a long time. Do not suddenly stop taking your medicine because you may develop a severe reaction. Your body becomes used to the medicine. This does NOT mean you are addicted. Addiction is a behavior related to getting and using a drug for a non-medical reason. If you have pain, you have a medical reason to take pain medicine. Your doctor will tell you how much medicine to take. If your doctor wants you to stop the medicine, the dose will be slowly lowered over time to avoid any side effects. You may get drowsy or dizzy when you first start taking the medicine or change doses. Do not drive, use machinery, or do anything that may be dangerous until you know how the medicine affects you. Stand or sit up slowly. There are different types of narcotic medicines (opiates) for pain. If you take more than one type at the same time, you may have more side effects. Give your health care provider a list of all medicines you use. Your doctor will tell you how much medicine to take. Do not take more medicine than directed. Call emergency for help if you have problems breathing. The medicine will cause constipation. Try to have a bowel movement at least every 2 to 3 days. If you do not have a bowel movement for 3 days, call your doctor or health care services manager. Too much acetaminophen can be very dangerous. Do not take Tylenol (acetaminophen) or medicines that contain acetaminophen with this medicine. Many non-prescription medicines contain acetaminophen. Always read the labels carefully. You have been given the following additional information: Fall, Mechanical Laceration, All Contusion, Soft Tissue Dressing Change Diphtheria Toxoid Adsorbed, Pertussis Vaccine, Acellular (Adsorbed), Tetanus Toxoid, Adsorbed Suspension for injection Hydrocodone Bitartrate, Acetaminophen Oral tablet (Electronically signed by Broderick Jarrell Dr. 02/23/2017 23:08)
== END 2017-02-23 23:03 | disposition home or self-care (01) ==
LOC: ED SRH 20:12
DX: S01.01XA Laceration without foreign body of scalp, initial encounter (principal); S20.221A Contusion of right back wall of thorax, initial encounter; W17.89XA Other fall from one level to another, initial encounter; Y93.9 Activity, unspecified; Y92.019 Unspecified place in single-family (private) house as the place of occurrence of the external cause; Y99.9 Unspecified external cause status; E78.00 Pure hypercholesterolemia, unspecified; Z23 Encounter for immunization; I10 Essential (primary) hypertension; E11.9 Type 2 diabetes mellitus without complications
CPT/HCPCS: 81663; 90100; 95059